=== PATIENT | male | born 1965 | race Caucasian/White ===

== ENCOUNTER 2017-03-14 12:29 | Emergency (ER) | payer MEDICAID ==
[~2017-03-14] VITALS: Ht 190.5 cm; Wt 86.6 kg
[~2017-03-14 12:29] MED LIST: ACID1TAB7 PO; CEPH-368 PO; FAMO20TA7 PO; GABA100C8 PO; GABA300C10 PO; GABA600T2 PO; GLIM4TAB PO; GLIM4TAB2 PO; HYDR-3138 PO; LEVO500T33 PO; LISI-170 PO; METF10002 PO; METO50TA82 PO; NAPR500T3 PO; NPH,100V SQ; SIMV40TA PO
[2017-03-14] MEDS ORDERED: METOPROLOL 1 MG/ML, 5ML IVPush ONE (13:19)
[2017-03-14] MEDS ORDERED: METOPROLOL 1 MG/ML, 5ML ONE (13:28)
[2017-03-14] MEDS ORDERED: HYDROmorphone 1 MG/ML, 1ML ONE (13:28)
[2017-03-14] MEDS ORDERED: methylPREDNISolone SOD SUCC 125 MG/2 ML ONE (13:29)
[2017-03-14] MEDS ORDERED: KETOROLAC 30 MG/1 ML ONE (13:29)
[2017-03-14] MEDS ORDERED: KETOROLAC 30 MG/1 ML IVPush ONE (13:30)
[2017-03-14] MEDS ORDERED: methylPREDNISolone SOD SUCC 40 MG/ML IV SCH (13:30)
[2017-03-14] MEDS ORDERED: methylPREDNISolone SOD SUCC 125 MG/2 ML IVPush ONE (13:30)
[2017-03-14] MEDS ORDERED: HYDROmorphone 1 MG/ML, 1ML IV ONE (13:30)
[2017-03-14] MEDS: METHOCARBAMOL 750 MG in DEXTROSE 5% 100 ML IV ONE ×2 (13:31→13:47)
[2017-03-14] MEDS ORDERED: LISINOPRIL 20 MG TABLET PO ONE (14:30)
[2017-03-14 15:15] VITALS: BP 162/94
== END 2017-03-14 15:17 | disposition home or self-care (01) ==
LOC: ED 15:01
DX: M51.26 Other intervertebral disc displacement, lumbar region (principal); I10 Essential (primary) hypertension; E11.9 Type 2 diabetes mellitus without complications
CPT/HCPCS: 96365; 96366; 96375; 99285; J1170; J1885; J2800; J2930

== ENCOUNTER 2017-04-05 11:44 | Emergency (ER) | payer MEDICAID ==
[~2017-04-05] VITALS: Ht 190.5 cm; Wt 84.0 kg
[2017-04-05] MEDS ORDERED: SODIUM CHLORIDE 0.9% 1,000 ML IV ONE (12:16)
[2017-04-05] MEDS ORDERED: SODIUM CHLORIDE 0.9% 1,000ML IVBOLUS ONE (12:30)
[2017-04-05] MEDS ORDERED: ONDANSETRON 2MG/ML, 2ML IVPush ONE (12:30)
[2017-04-05] MEDS ORDERED: METOPROLOL 1 MG/ML, 5ML IVPush PRN (12:30)
[2017-04-05] MEDS ORDERED: SODIUM CHLORIDE FLUSH 10ML SYR IVF ONE (12:30)
[2017-04-05] MEDS ORDERED: ONDANSETRON 2MG/ML, 2ML ONE (12:44)
[2017-04-05 12:58] LABS: BLOOD UREA NITROGEN 16 mg/dL (7-18)
[2017-04-05 13:03] LABS: IS PT STATUS REG ER OR PRE ER? YES
[2017-04-05] MEDS ORDERED: METOPROLOL 1 MG/ML, 5ML ONE (13:03)
[2017-04-05] MEDS ORDERED: POTASSIUM CHLORIDE 20 MEQ TAB.ER.PRT PO ONE (13:30)
[2017-04-05] MEDS ORDERED: POTASSIUM CHLORIDE 20 MEQ TAB.ER.PRT ONE (13:36)
[2017-04-05 15:09] VITALS: BP 165/95
== END 2017-04-05 15:12 | disposition home or self-care (01) ==
LOC: ED 14:45
DX: R11.2 Nausea with vomiting, unspecified (principal); E86.9 Volume depletion, unspecified; F11.23 Opioid dependence with withdrawal; R07.89 Other chest pain; E11.65 Type 2 diabetes mellitus with hyperglycemia; F11.20 Opioid dependence, uncomplicated; I10 Essential (primary) hypertension; I27.2 Other secondary pulmonary hypertension; Z76.0 Encounter for issue of repeat prescription
CPT/HCPCS: 36415; 71010; 80048; 82040; 84484; 85025; 93005; 96361; 96374; 96375; 99285; J2405; J7030

== ENCOUNTER 2017-10-14 06:12 | Inpatient (IN) | payer BC, MEDICAID ==
[~2017-10-14] VITALS: Ht 190.5 cm; Wt 88.8 kg
[~2017-10-14 06:12] MED LIST changes: +GABA-826 PO; -GABA100C8 PO; -HYDR-3138 PO; +HYDR-3237 PO; -LEVO500T33 PO; +LEVO500T47 PO; -NAPR500T3 PO; +NAPR500T4 PO
[2017-10-14] MEDS ORDERED: SODIUM CHLORIDE FLUSH 10ML SYR IVF ONE (07:00)
[2017-10-14] MEDS ORDERED: CEFTRIAXONE PMX 1GM/50ML 50 ML IVPB ONE (07:00)
[2017-10-14] MEDS ORDERED: VANCOMYCIN PER PHARMACY IV ONE (07:00)
[2017-10-14] MEDS ORDERED: CEFTRIAXONE PMX 1GM/50ML 50 ML ONE (07:15)
[2017-10-14 07:21] LABS: HEMATOCRIT 40.4 % (39.2-51.8); HEMOGLOBIN 14.1 g/dL (13.7-18.0); WHITE BLOOD COUNT 7.9 x10^3/uL (3.4-10)
[2017-10-14] MEDS ORDERED: VANCOMYCIN 1,700 MG in SODIUM CHLORIDE 0.9% 250 ML IV ONE (07:30)
[2017-10-14 07:32] LABS: BLOOD UREA NITROGEN 28 mg/dL (7-18)
[2017-10-14 12:15] VITALS: BP 162/96
[2017-10-14 12:19] VITALS: BP 162/96
[2017-10-14] MEDS ORDERED: ENALAPRILAT 1.25 MG/ML, 2ML IVPush PRN (12:30)
[2017-10-14] MEDS ORDERED: hydrALAzine 20 MG/ML, 1ML IVPush PRN (12:30)
[2017-10-14] MEDS ORDERED: ONDANSETRON ODT 4 MG PO PRN (12:30)
[2017-10-14] MEDS: INSULIN ASPART 100 UNITS/ML, PEN SQ-INSULIN SCH ×3 (12:30→21:42)
[2017-10-14] MEDS ORDERED: ACETAMINOPHEN 325 MG TABLET PO PRN (12:30)
[2017-10-14] MEDS ORDERED: BISACODYL 10 MG SUPP PR PRN (12:30)
[2017-10-14] MEDS ORDERED: LABETALOL 5MG/ML, 20ML IVPush PRN (12:30)
[2017-10-14] MEDS: SENNA/DOCUSATE TABLET PO SCH (12:47)
[2017-10-14] MEDS: HEPARIN 5,000 UNITS/ML, 1ML SQ SCH ×2 (13:00→21:28)
[2017-10-14] MEDS ORDERED: GADOBUTROL 10 MMOL/10 ML PFS ONE (15:03)
[2017-10-14] MEDS ORDERED: VANCOMYCIN PER PHARMACY MC PRN (17:00)
[2017-10-14] MEDS ORDERED: PHARMACOKINETIC MONITORING MC PRN (17:00)
[2017-10-14] MEDS ORDERED: PHARMACOKINETIC CONSULTATION MC ONE (17:00)
[2017-10-14] MEDS: OXYcodone IR 5MG TABLET PO PRN (17:17)
[2017-10-14 18:24] VITALS: BP 145/85
[2017-10-14] MEDS ORDERED: CEFTRIAXONE PMX 2GM/50ML 50 ML IV SCH (19:00)
[2017-10-14] MEDS: SODIUM CHLORIDE FLUSH 10ML SYR IVF SCH (19:37)
[2017-10-14] MEDS: LISINOPRIL 20 MG TABLET PO SCH (21:34)
[2017-10-14] MEDS: GLIMEPIRIDE 4 MG TABLET PO SCH (21:34)
[2017-10-14] MEDS: LACTULOSE 10 GM/15 ML UDC PO SCH (21:36)
[2017-10-15 00:32] VITALS: BP 138/82
[2017-10-15] MEDS ORDERED: VANCOMYCIN 1,700 MG in SODIUM CHLORIDE 0.9% 250 ML IV SCH ×3 (02:00→20:00)
[2017-10-15] MEDS: HEPARIN 5,000 UNITS/ML, 1ML SQ SCH ×3 (04:07→19:26)
[2017-10-15] MEDS: OXYcodone IR 5MG TABLET PO PRN ×3 (05:38→18:46)
[2017-10-15 06:14] LABS: HEMATOCRIT 36.2 % (39.2-51.8); HEMOGLOBIN 12.3 g/dL (13.7-18.0); WHITE BLOOD COUNT 5.2 x10^3/uL (3.4-10)
[2017-10-15 06:47] LABS: BLOOD UREA NITROGEN 19 mg/dL (7-18)
[2017-10-15] MEDS: INSULIN ASPART 100 UNITS/ML, PEN SQ-INSULIN SCH ×4 (07:00→19:29)
[2017-10-15 07:28] VITALS: BP 123/70
[2017-10-15] MEDS: LISINOPRIL 20 MG TABLET PO SCH ×2 (07:30→19:20)
[2017-10-15] MEDS: LACTULOSE 10 GM/15 ML UDC PO SCH ×2 (07:30→19:26)
[2017-10-15] MEDS: GLIMEPIRIDE 4 MG TABLET PO SCH ×2 (07:30→19:20)
[2017-10-15] MEDS: METOPROLOL TARTRATE 50 MG TABLET PO SCH (07:30)
[2017-10-15] MEDS: SODIUM CHLORIDE FLUSH 10ML SYR IVF SCH ×2 (07:30→19:23)
[2017-10-15] MEDS: SENNA/DOCUSATE TABLET PO SCH (07:31)
[2017-10-15 14:30] VITALS: BP 135/83
[2017-10-15] MEDS ORDERED: CEFTRIAXONE 2 GM in DEXTROSE 5% 50 ML IV SCH (19:00)
[2017-10-15 20:04] VITALS: BP 124/80
[2017-10-16 01:43] VITALS: BP 126/78
[2017-10-16] MEDS: OXYcodone IR 5MG TABLET PO PRN ×2 (03:44→08:57)
[2017-10-16] MEDS: HEPARIN 5,000 UNITS/ML, 1ML SQ SCH (03:45)
[2017-10-16 08:00] VITALS: BP 161/96
[2017-10-16] MEDS ORDERED: DOXY100T PO (08:33)
[2017-10-16] MEDS: GLIMEPIRIDE 4 MG TABLET PO SCH (08:57)
[2017-10-16] MEDS: LISINOPRIL 20 MG TABLET PO SCH (08:58)
[2017-10-16] MEDS: METOPROLOL TARTRATE 50 MG TABLET PO SCH (08:58)
[2017-10-16] MEDS: LACTULOSE 10 GM/15 ML UDC PO SCH (08:58)
[2017-10-16] MEDS: SODIUM CHLORIDE FLUSH 10ML SYR IVF SCH (08:59)
[2017-10-16] MEDS: SENNA/DOCUSATE TABLET PO SCH (08:59)
[2017-10-16] MEDS: INSULIN ASPART 100 UNITS/ML, PEN SQ-INSULIN SCH (08:59)
== END 2017-10-16 11:45 | disposition home or self-care (01) | DRG 603 ==
LOC: ED 08:13 → 3NE 10:46 → DCLOUNGE 10-16 11:34
PROVIDERS: ADMIT Family Medicine; ATTEND Family Medicine
DX: L03.115 Cellulitis of right lower limb (principal); E11.40 Type 2 diabetes mellitus with diabetic neuropathy, unspecified; E11.621 Type 2 diabetes mellitus with foot ulcer; F19.20 Other psychoactive substance dependence, uncomplicated; G89.29 Other chronic pain; I10 Essential (primary) hypertension; I25.10 Atherosclerotic heart disease of native coronary artery without angina pectoris; L97.519 Non-pressure chronic ulcer of other part of right foot with unspecified severity; Z88.8 Allergy status to other drugs, medicaments and biological substances; Z83.3 Family history of diabetes mellitus
CPT/HCPCS: 36415; 80048; 81003; 82040; 82962; 83036; 83605; 85025; 85651; 86140; 87040; 96365; 96366; 96367; A9585; J0696; J1815; J3370; J7050

== ENCOUNTER → 2017-12-08 | Outpatient (CLI) | payer BC, MEDICAID ==
[~2017-12-08] MED LIST changes: +DOXY100T PO; +OXYC-307 PO
[2017-12-08 12:12] LABS: BASOPHILS # (AUTO) 0.02 x10^3/uL (0-0.1); BASOPHILS % (AUTO) 0 % (0-1); EOSINOPHILS # (AUTO) 0.07 x10^3/uL (0-0.4); EOSINOPHILS % (AUTO) 1 % (1-7); LYMPHOCYTES # (AUTO) 1.74 x10^3/uL (1-3.4); LYMPHOCYTES % (AUTO) 23 % (22-44); MD NO; MEAN CORPUSCULAR HEMOGLOBIN 32.7 pg (27.5-34.5); MEAN CORPUSCULAR HGB CONC 34.4 g/dL (33.2-36.2); MEAN PLATELET VOLUME 7.5 fL (7.4-10.4); MONOCYTES # (AUTO) 0.42 x10^3/uL (0.2-0.8); MONOCYTES % (AUTO) 6 % (2-9); NEUTROPHILS # (AUTO) 5.27 x10^3/uL (1.8-6.8); NEUTROPHILS % (AUTO) 70 % (42-75); PLATELET COUNT 195 x10^3/uL (130-400); RED BLOOD COUNT 4.55 x10^6/uL (4.38-5.82); RED CELL DISTRIBUTION WIDTH 14.4 % (9.4-14.8)
[2017-12-08 12:21] LABS: MICROSCOPIC AUTO
[2017-12-08 12:23] LABS: CULTURE INDICATED? YES
[2017-12-08 12:24] LABS: ALBUMIN 4.2 g/dL (3.4-5.0); ANION GAP 7 mmol/L (5-15); CALCIUM 8.8 mg/dL (8.5-10.1); CHLORIDE 104 mmol/L (98-107)
[2017-12-08 12:27] LABS: ALANINE AMINOTRANSFERASE 29 U/L (12-78); ALKALINE PHOSPHATASE 88 U/L (45-117); BILIRUBIN,TOTAL 0.5 mg/dL (0.2-1.0); CREATININE 1.34 mg/dL (0.7-1.3)
== END | disposition home or self-care (01) ==
LOC: STAR 11:04
PROVIDERS: ATTEND Orthopaedic Surgery Orthopaedic Surgery of the Spine
DX: Z01.818 Encounter for other preprocedural examination (principal); M48.061 Spinal stenosis, lumbar region without neurogenic claudication; M51.36 Other intervertebral disc degeneration, lumbar region; M54.16 Radiculopathy, lumbar region; R94.31 Abnormal electrocardiogram [ECG] [EKG]
CPT/HCPCS: 36415; 71046; 80053; 81001; 85025; 87086; 93005

== ENCOUNTER 2017-12-18 09:32 | Observation (INO) | payer BC, MEDICAID ==
[~2017-12-18] VITALS: Ht 190.5 cm; Wt 91.4 kg
[~2017-12-18 09:32] MED LIST changes: +BACITRACIN 50,000 UNIT ONE; +BUPIVACAINE/PF 0.5% ONE; +EPINEPHRINE 1 MG/ML, 1ML ONE; +THROMBIN 5,000 UNIT VIAL TP ONE; +TRANEXAMIC ACID 100 MG/ML, 10ML ONE; +VANCOMYCIN 1,000 MG ONE
[2017-12-18 10:04] VITALS: BP 176/109
[2017-12-18] MEDS ORDERED: SCOPOLAMINE PATCH, 1.5MG PATCH.TD72 TD ONE (10:08)
[2017-12-18] MEDS ORDERED: LIDOCAINE 1%, 2ML ONE (10:09)
[2017-12-18] MEDS ORDERED: LACTATED RINGERS 1,000 ML IV SCH (10:19)
[2017-12-18] MEDS ORDERED: SCOPOLAMINE PATCH, 1.5MG PATCH.TD72 TD SCH (10:30)
[2017-12-18] MEDS ORDERED: LISINOPRIL 20 MG TABLET PO ONE (10:30)
[2017-12-18] MEDS ORDERED: LIDOCAINE 1%, 2ML SQ PRN (10:30)
[2017-12-18] MEDS ORDERED: OXYcodone/APAP 5/325MG TABLET PO PRN (12:00)
[2017-12-18] MEDS ORDERED: HYDROmorphone 2 MG/ML, 1ML IVPush PRN (12:00)
[2017-12-18] MEDS ORDERED: DIAZEPAM 2 MG TABLET PO PRN (12:00)
[2017-12-18] MEDS ORDERED: ACETAMINOPHEN 325 MG TABLET PO PRN ×2 (12:00→16:30)
[2017-12-18] MEDS ORDERED: PHARMACY MAY ADJ FOR RENAL FX MC PRN (12:00)
[2017-12-18] MEDS ORDERED: LIDOCAINE-MPF 2% ,5ML ONE (12:54)
[2017-12-18] MEDS ORDERED: PROPOFOL 10 MG/ML, 20ML ONE (12:54)
[2017-12-18] MEDS ORDERED: ROCURONIUM 10 MG/ML,10ML ONE (12:54)
[2017-12-18] MEDS ORDERED: CEFAZOLIN 1,000 MG ONE (12:56)
[2017-12-18] MEDS ORDERED: PHENYLEPHRINE 10 MG/ML ONE (12:56)
[2017-12-18] MEDS ORDERED: FENTANYL PF 250 MCG/5ML ONE (13:21)
[2017-12-18] MEDS ORDERED: DEXAMETHASONE 4 MG/ML, 1ML ONE ×2 (13:40)
[2017-12-18] MEDS ORDERED: BACITRACIN 50,000 UNIT IRRIG ONE (13:42)
[2017-12-18] MEDS ORDERED: BUPIVACAINE/PF 0.5% INFIL ONE (13:43)
[2017-12-18] MEDS ORDERED: NEOSTIGMINE 1 MG/ML, 10ML ONE (13:50)
[2017-12-18] MEDS ORDERED: GLYCOPYRROLATE 0.2MG/1ML, 5ML ONE (13:50)
[2017-12-18] MEDS ORDERED: ONDANSETRON 2MG/ML, 2ML ONE (14:46)
[2017-12-18] MEDS ORDERED: FENTANYL PF 100 MCG/2ML ONE ×4 (14:57→17:23)
[2017-12-18] MEDS: HYDROmorphone 1 MG/ML, 1ML IV PRN ×4 (16:06→16:36)
[2017-12-18] MEDS: FENTANYL PF 100 MCG/2ML IV PRN ×2 (16:11→16:42)
[2017-12-18] MEDS ORDERED: OXYcodone 5 MG/5 ML ORAL.SOL UDC ONE (16:20)
[2017-12-18] MEDS ORDERED: HYDROmorphone 2 MG/ML, 1ML ONE (16:20)
[2017-12-18] MEDS ORDERED: ACETAMINOPHEN 650 MG/20.3 ML UDC ONE (16:20)
[2017-12-18] MEDS ORDERED: OXYcodone 5 MG/5 ML ORAL.SOL UDC PO PRN (16:30)
[2017-12-18] MEDS ORDERED: MEPERIDINE/PF 25MG/0.5ML IVPush PRN (16:30)
[2017-12-18] MEDS ORDERED: MIDAZOLAM 1 MG/ML, 2ML IV PRN (16:30)
[2017-12-18] MEDS ORDERED: DIAZEPAM 5 MG/ML, 2ML IVPush PRN (16:30)
[2017-12-18] MEDS ORDERED: HYDROcodone/APAP 7.5-325MG/15ML UDC PO PRN (16:30)
[2017-12-18] MEDS ORDERED: PROMETHAZINE 12.5 MG SUPP PR PRN (16:30)
[2017-12-18] MEDS ORDERED: LABETALOL 5MG/ML, 20ML IV PRN (16:30)
[2017-12-18] MEDS ORDERED: hydrALAzine 20 MG/ML, 1ML IV PRN (16:30)
[2017-12-18] MEDS ORDERED: ONDANSETRON 2MG/ML, 2ML IVPush PRN (16:30)
[2017-12-18] MEDS ORDERED: HYDROmorphone 2 MG/ML, 1ML IV PRN (17:12)
[2017-12-18] MEDS ORDERED: PROMETHAZINE 25 MG/ML, 1ML ONE (17:37)
[2017-12-18] MEDS: CEFAZOLIN PMX 1GM/50ML 50 ML IVPB SCH (20:11)
[2017-12-18] MEDS: OXYcodone/APAP 10/325MG TABLET PO SCH ×2 (20:11→21:00)
[2017-12-18] MEDS: METOPROLOL TARTRATE 50 MG TABLET PO SCH (20:11)
[2017-12-18] MEDS: LISINOPRIL 20 MG TABLET PO SCH (20:12)
[2017-12-18] MEDS: metFORMIN 500 MG TABLET PO SCH (20:17)
[2017-12-19 00:33] VITALS: BP 106/64
[2017-12-19 03:46] VITALS: BP 133/72
[2017-12-19] MEDS ORDERED: CEFAZOLIN PMX 1GM/50ML 50 ML ONE (04:05)
[2017-12-19] MEDS: CEFAZOLIN PMX 1GM/50ML 50 ML IVPB SCH (04:08)
[2017-12-19] MEDS: OXYcodone/APAP 10/325MG TABLET PO SCH (05:25)
[2017-12-19 07:25] VITALS: BP 134/74
[2017-12-19] MEDS: LISINOPRIL 20 MG TABLET PO SCH (08:52)
[2017-12-19] MEDS: metFORMIN 500 MG TABLET PO SCH (08:52)
[2017-12-19] MEDS: METOPROLOL TARTRATE 50 MG TABLET PO SCH (08:52)
[2017-12-19 09:43] VITALS: BP 146/79
== END 2017-12-19 10:00 | disposition home or self-care (01) ==
LOC: INTOOBSV 09:32 → ORIP 09:32 → 4NOR 18:03
PROVIDERS: ADMIT Orthopaedic Surgery Orthopaedic Surgery of the Spine; ATTEND Orthopaedic Surgery Orthopaedic Surgery of the Spine
DX: M47.26 Other spondylosis with radiculopathy, lumbar region (principal); M48.061 Spinal stenosis, lumbar region without neurogenic claudication; M51.16 Intervertebral disc disorders with radiculopathy, lumbar region
CPT/HCPCS: 20931; 22558; 22853; 72100; 74018; 82962; 96365; 96375; 97116; 97161; G0378; J0171; J0690; J1100; J1170; J2370; J2405; J2704; J2710; J3010; J3360; J3370; J3490; J7120; C1713; C1762

== ENCOUNTER 2018-04-07 12:06 | Inpatient (IN) | payer BC, MEDICAID ==
[~2018-04-07] VITALS: Ht 190.5 cm; Wt 93.3 kg
[~2018-04-07 12:06] MED LIST changes: -BACITRACIN 50,000 UNIT ONE; -BUPIVACAINE/PF 0.5% ONE; -EPINEPHRINE 1 MG/ML, 1ML ONE; +NAPR-685 PO; -NAPR500T4 PO; -THROMBIN 5,000 UNIT VIAL TP ONE; -TRANEXAMIC ACID 100 MG/ML, 10ML ONE; -VANCOMYCIN 1,000 MG ONE
[2018-04-07] MEDS ORDERED: AMPICILLIN/SULBACTAM 3 GM in SODIUM CHLORIDE 0.9% 100 ML IVPB ONE (13:00)
[2018-04-07] MEDS ORDERED: SODIUM CHLORIDE FLUSH 10ML SYR IVF ONE (13:00)
[2018-04-07] MEDS ORDERED: CLINDAMYCIN PMX 600MG/50ML 50 ML IV ONE (13:00)
[2018-04-07 13:12] LABS: BASOPHILS # (AUTO) 0.02 x10^3/uL (0-0.1); BASOPHILS % (AUTO) 0 % (0-1); EOSINOPHILS # (AUTO) 0.01 x10^3/uL (0-0.4); EOSINOPHILS % (AUTO) 0 % (1-7); LYMPHOCYTES # (AUTO) 0.91 x10^3/uL (1-3.4); LYMPHOCYTES % (AUTO) 7 % (22-44); MD NO; MEAN CORPUSCULAR HEMOGLOBIN 32.1 pg (27.5-34.5); MEAN CORPUSCULAR HGB CONC 33.9 g/dL (33.2-36.2); MEAN CORPUSCULAR VOLUME 94.7 fL (81-97); MEAN PLATELET VOLUME 7.7 fL (7.4-10.4); MONOCYTES # (AUTO) 0.79 x10^3/uL (0.2-0.8); MONOCYTES % (AUTO) 6 % (2-9); NEUTROPHILS # (AUTO) 11.47 x10^3/uL (1.8-6.8); NEUTROPHILS % (AUTO) 87 % (42-75); PLATELET COUNT 186 x10^3/uL (130-400); RED BLOOD COUNT 5.07 x10^6/uL (4.38-5.82); RED CELL DISTRIBUTION WIDTH 13.3 % (9.4-14.8)
[2018-04-07 13:24] LABS: ALBUMIN 3.7 g/dL (3.4-5.0); ANION GAP 8 mmol/L (5-15); CALCIUM 9.1 mg/dL (8.5-10.1); CHLORIDE 91 mmol/L (98-107); CREATININE 1.49 mg/dL (0.7-1.3)
[2018-04-07] MEDS ORDERED: CLINDAMYCIN PMX 600MG/50ML 50 ML ONE (13:40)
[2018-04-07] MEDS ORDERED: KETOROLAC 30 MG/1 ML IVPush ONE (14:30)
[2018-04-07] MEDS ORDERED: MORPHINE SULFATE 4 MG/ML, 1ML ONE (14:46)
[2018-04-07] MEDS ORDERED: ONDANSETRON ODT 4 MG ONE (14:46)
[2018-04-07] MEDS ORDERED: SODIUM CHLORIDE 0.9% 1,000 ML IV ONE (15:00)
[2018-04-07] MEDS ORDERED: MORPHINE SULFATE 4 MG/ML, 1ML IVPush PRN (15:00)
[2018-04-07] MEDS ORDERED: INSULIN REGULAR 100 UNITS/ML, 3ML VIAL IVPush ONE (15:00)
[2018-04-07] MEDS ORDERED: ONDANSETRON ODT 4 MG PO ONE (15:00)
[2018-04-07] MEDS ORDERED: INSULIN REGULAR 100 UNITS/ML, 3ML VIAL ONE (15:10)
[2018-04-07] MEDS ORDERED: GLUCAGON 1 MG IM PRN (15:30)
[2018-04-07] MEDS ORDERED: DEXTROSE 4 GM TAB.CHEW PO PRN (15:30)
[2018-04-07] MEDS ORDERED: ONDANSETRON ODT 4 MG PO PRN (15:30)
[2018-04-07] MEDS ORDERED: BISACODYL 10 MG SUPP PR PRN (15:30)
[2018-04-07] MEDS ORDERED: ONDANSETRON 2MG/ML, 2ML IVPush PRN (15:30)
[2018-04-07] MEDS ORDERED: hydrALAzine 20 MG/ML, 1ML IVPush PRN (15:30)
[2018-04-07] MEDS ORDERED: POLYETHYLENE GLYCOL 17 GM PACKET PO PRN (15:30)
[2018-04-07] MEDS ORDERED: DEXTROSE 50%, 50ML SYRINGE IVPush PRN (15:30)
[2018-04-07] MEDS ORDERED: LABETALOL 5MG/ML, 20ML IVPush PRN (15:30)
[2018-04-07] MEDS: SODIUM CHLORIDE 0.9% 1,000 ML IV SCH ×2 (15:36→23:05)
[2018-04-07] MEDS: ACETAMINOPHEN 325 MG TABLET PO PRN ×2 (15:41→23:04)
[2018-04-07] MEDS ORDERED: ACETAMINOPHEN 325 MG TABLET ONE (15:41)
[2018-04-07 16:12] LABS: HEMOGLOBIN A1C 10.2 % (4.2-6.3)
[2018-04-07] MEDS: HEPARIN 5,000 UNITS/ML, 1ML SQ SCH ×2 (17:16→23:05)
[2018-04-07] MEDS: INSULIN LISPRO 100 UNITS/ML, PEN SQ-INSULIN SCH ×2 (17:54→19:57)
[2018-04-07] MEDS: CLINDAMYCIN PMX 600MG/50ML 50 ML IV SCH (17:59)
[2018-04-07 18:15] VITALS: BP 163/97
[2018-04-07 19:20] VITALS: BP 132/80
[2018-04-07] MEDS: METOPROLOL TARTRATE 50 MG TABLET PO SCH (19:58)
[2018-04-07] MEDS: SODIUM CHLORIDE FLUSH 10ML SYR IVF SCH (19:58)
[2018-04-08] MEDS: CLINDAMYCIN PMX 600MG/50ML 50 ML IV SCH ×3 (01:06→17:12)
[2018-04-08 02:22] VITALS: BP 136/87
[2018-04-08] MEDS: ACETAMINOPHEN 325 MG TABLET PO PRN ×2 (04:19→11:43)
[2018-04-08] MEDS ORDERED: INSULIN LISPRO 100 UNITS/ML, PEN SQ-INSULIN ONE (04:30)
[2018-04-08 05:26] LABS: ALBUMIN 2.8 g/dL (3.4-5.0); ANION GAP 7 mmol/L (5-15); BASOPHILS # (AUTO) 0.02 x10^3/uL (0-0.1); BASOPHILS % (AUTO) 0 % (0-1); CALCIUM 7.9 mg/dL (8.5-10.1); CHLORIDE 97 mmol/L (98-107); EOSINOPHILS # (AUTO) 0.03 x10^3/uL (0-0.4); EOSINOPHILS % (AUTO) 0 % (1-7); LYMPHOCYTES # (AUTO) 1.59 x10^3/uL (1-3.4); LYMPHOCYTES % (AUTO) 15 % (22-44); MD NO; MEAN CORPUSCULAR HEMOGLOBIN 31.9 pg (27.5-34.5); MEAN CORPUSCULAR HGB CONC 33.6 g/dL (33.2-36.2); MEAN CORPUSCULAR VOLUME 94.9 fL (81-97); MEAN PLATELET VOLUME 7.5 fL (7.4-10.4); MONOCYTES % (AUTO) 10 % (2-9); NEUTROPHILS # (AUTO) 7.65 x10^3/uL (1.8-6.8); NEUTROPHILS % (AUTO) 74 % (42-75); PLATELET COUNT 175 x10^3/uL (130-400); RED BLOOD COUNT 4.31 x10^6/uL (4.38-5.82); RED CELL DISTRIBUTION WIDTH 13.4 % (9.4-14.8)
[2018-04-08 05:32] LABS: ALANINE AMINOTRANSFERASE 23 U/L (12-78); ALKALINE PHOSPHATASE 90 U/L (45-117); BILIRUBIN,TOTAL 0.8 mg/dL (0.2-1.0); CREATININE 1.52 mg/dL (0.7-1.3); TOTAL PROTEIN 6.9 g/dL (6.4-8.2)
[2018-04-08 06:41] VITALS: BP 138/90
[2018-04-08] MEDS: HEPARIN 5,000 UNITS/ML, 1ML SQ SCH ×3 (08:21→23:50)
[2018-04-08] MEDS: SODIUM CHLORIDE FLUSH 10ML SYR IVF SCH ×2 (08:21→21:00)
[2018-04-08] MEDS: SENNA/DOCUSATE TABLET PO SCH (08:22)
[2018-04-08] MEDS: INSULIN LISPRO 100 UNITS/ML, PEN SQ-INSULIN SCH ×4 (08:22→20:57)
[2018-04-08] MEDS: METOPROLOL TARTRATE 50 MG TABLET PO SCH ×2 (08:23→20:56)
[2018-04-08] MEDS: SODIUM CHLORIDE 0.9% 1,000 ML IV SCH ×2 (09:53→20:59)
[2018-04-08 14:00] VITALS: BP 152/95
[2018-04-08] MEDS: ACETAMINOPHEN 500 MG TABLET PO SCH ×2 (16:00→20:56)
[2018-04-08 19:47] VITALS: BP 163/104
[2018-04-08] MEDS ORDERED: INSULIN GLARGINE 100 UNITS/ML, PEN SQ-INSULIN SCH (21:00)
[2018-04-08 23:35] VITALS: BP 173/102
[2018-04-09 00:47] VITALS: BP 158/93
[2018-04-09] MEDS: CLINDAMYCIN PMX 600MG/50ML 50 ML IV SCH ×2 (01:36→09:36)
[2018-04-09 02:25] VITALS: BP 133/83
[2018-04-09] MEDS: ACETAMINOPHEN 325 MG TABLET PO PRN (03:22)
[2018-04-09] MEDS: SODIUM CHLORIDE 0.9% 1,000 ML IV SCH ×2 (05:48→14:00)
[2018-04-09 05:56] LABS: ALBUMIN 2.8 g/dL (3.4-5.0); ANION GAP 7 mmol/L (5-15); CALCIUM 7.9 mg/dL (8.5-10.1); CHLORIDE 106 mmol/L (98-107)
[2018-04-09 05:58] LABS: BASOPHILS # (AUTO) 0.02 x10^3/uL (0-0.1); BASOPHILS % (AUTO) 0 % (0-1); EOSINOPHILS # (AUTO) 0.03 x10^3/uL (0-0.4); EOSINOPHILS % (AUTO) 1 % (1-7); LYMPHOCYTES # (AUTO) 1.49 x10^3/uL (1-3.4); LYMPHOCYTES % (AUTO) 24 % (22-44); MD NO; MEAN CORPUSCULAR HEMOGLOBIN 32.7 pg (27.5-34.5); MEAN CORPUSCULAR HGB CONC 34.7 g/dL (33.2-36.2); MEAN CORPUSCULAR VOLUME 94.4 fL (81-97); MEAN PLATELET VOLUME 7.4 fL (7.4-10.4); MONOCYTES # (AUTO) 0.59 x10^3/uL (0.2-0.8); MONOCYTES % (AUTO) 9 % (2-9); NEUTROPHILS # (AUTO) 4.13 x10^3/uL (1.8-6.8); NEUTROPHILS % (AUTO) 66 % (42-75); PLATELET COUNT 174 x10^3/uL (130-400); RED BLOOD COUNT 4.18 x10^6/uL (4.38-5.82); RED CELL DISTRIBUTION WIDTH 13.6 % (9.4-14.8)
[2018-04-09 05:59] LABS: ALANINE AMINOTRANSFERASE 22 U/L (12-78); ALKALINE PHOSPHATASE 90 U/L (45-117); BILIRUBIN,TOTAL 0.5 mg/dL (0.2-1.0); CREATININE 1.04 mg/dL (0.7-1.3); TOTAL PROTEIN 6.9 g/dL (6.4-8.2)
[2018-04-09] MEDS: HEPARIN 5,000 UNITS/ML, 1ML SQ SCH (07:26)
[2018-04-09] MEDS: INSULIN LISPRO 100 UNITS/ML, PEN SQ-INSULIN SCH ×2 (07:26→11:47)
[2018-04-09] MEDS: SODIUM CHLORIDE FLUSH 10ML SYR IVF SCH (07:27)
[2018-04-09] MEDS: METOPROLOL TARTRATE 50 MG TABLET PO SCH (07:27)
[2018-04-09] MEDS: SENNA/DOCUSATE TABLET PO SCH (07:27)
[2018-04-09] MEDS: ACETAMINOPHEN 500 MG TABLET PO SCH ×2 (07:28→14:11)
[2018-04-09 08:30] VITALS: BP 173/109
[2018-04-09] MEDS ORDERED: CLIN300C8 PO (14:30)
[2018-04-09] MEDS ORDERED: CLINDAMYCIN 300 MG CAPSULE PO SCH (14:30)
== END 2018-04-09 15:27 | disposition home or self-care (01) | DRG 683 ==
LOC: ED 15:14 → EDIP 15:15 → ED 15:28 → 3NE 15:52
PROVIDERS: ADMIT Family Medicine; ATTEND Family Medicine
DX: N17.9 Acute kidney failure, unspecified (principal); L03.116 Cellulitis of left lower limb; E11.621 Type 2 diabetes mellitus with foot ulcer; E11.65 Type 2 diabetes mellitus with hyperglycemia; E87.1 Hypo-osmolality and hyponatremia; L03.115 Cellulitis of right lower limb; I27.20 Pulmonary hypertension, unspecified; R65.10 Systemic inflammatory response syndrome (SIRS) of non-infectious origin without acute organ dysfunction; F19.20 Other psychoactive substance dependence, uncomplicated; G89.29 Other chronic pain; I10 Essential (primary) hypertension; I16.0 Hypertensive urgency; I25.10 Atherosclerotic heart disease of native coronary artery without angina pectoris; J45.909 Unspecified asthma, uncomplicated; L97.509 Non-pressure chronic ulcer of other part of unspecified foot with unspecified severity; Z79.84 Long term (current) use of oral hypoglycemic drugs; Z82.3 Family history of stroke; Z88.8 Allergy status to other drugs, medicaments and biological substances; Z82.49 Family history of ischemic heart disease and other diseases of the circulatory system
CPT/HCPCS: 36415; 80048; 80053; 82040; 82962; 83036; 83605; 83930; 84145; 85025; 87040; 96365; 96375; J1644; Q0162; J0360; J1815; J7030